=== PATIENT | female | born 1970 | race Caucasian/White ===

== ENCOUNTER 2018-10-14 08:56 | Outpatient (CLI) | payer OTHER | END 2018-10-14 08:58 | disposition home or self-care (01) | LOC: SONOGRAMA 08:56 | DX: R59.0 Localized enlarged lymph nodes (principal) ==

== ENCOUNTER 2019-05-12 08:10 | Outpatient (CLI) | payer OTHER | END 2019-05-12 10:39 | disposition home or self-care (01) | LOC: SONOGRAMA 08:10 | DX: E04.1 Nontoxic single thyroid nodule (principal) ==